=== PATIENT | male | born 1945 | race Two or more races ===

== ENCOUNTER 2021-02-15 06:36 | Day surgery (SDC) | payer OTHER ==
[~2021-02-15 06:36] MED LIST: COZAAR100 MG PO; GLIPIZIDE XL10 MG PO; JANUVIA50 MG PO; LASIX20 MG PO; NORVASC10 MG PO; TAMS0.4C PO
== END 2021-02-15 14:30 | disposition home or self-care (01) ==
LOC: CIR.AMB 06:36
PROVIDERS: ATTEND Urology
DX: C61 Malignant neoplasm of prostate (principal); C67.8 Malignant neoplasm of overlapping sites of bladder; C66.2 Malignant neoplasm of left ureter; N13.1 Hydronephrosis with ureteral stricture, not elsewhere classified; Z20.822 Contact with and (suspected) exposure to COVID-19

== ENCOUNTER 2021-04-19 05:35 | Day surgery (SDC) | payer OTHER | END 2021-04-19 16:35 | disposition home or self-care (01) | LOC: CIR.AMB 05:35 | PROVIDERS: ATTEND Urology | DX: C66.1 Malignant neoplasm of right ureter (principal); D49.511 Neoplasm of unspecified behavior of right kidney; Z20.822 Contact with and (suspected) exposure to COVID-19 ==

== ENCOUNTER 2021-06-07 05:42 | Day surgery (SDC) | payer OTHER ==
[~2021-06-07 05:42] MED LIST changes: +ATORVASTATIN CA10 MG PO; +PROSCAR5 MG PO
== END 2021-06-07 14:15 | disposition home or self-care (01) ==
LOC: CIR.AMB 05:42
PROVIDERS: ATTEND Urology
DX: C64.1 Malignant neoplasm of right kidney, except renal pelvis (principal); Z20.822 Contact with and (suspected) exposure to COVID-19

== ENCOUNTER 2021-07-15 06:00 | Day surgery (SDC) | payer OTHER | END 2021-07-15 16:15 | disposition home or self-care (01) | LOC: CIR.AMB 06:00 | PROVIDERS: ATTEND Urology | DX: C65.1 Malignant neoplasm of right renal pelvis (principal); Z20.822 Contact with and (suspected) exposure to COVID-19 ==

== ENCOUNTER 2021-10-18 09:06 | Day surgery (SDC) | payer OTHER | END 2021-10-18 18:35 | disposition home or self-care (01) | LOC: CIR.AMB 09:06 | PROVIDERS: ATTEND Urology | DX: C65.1 Malignant neoplasm of right renal pelvis (principal); Z20.822 Contact with and (suspected) exposure to COVID-19 ==

== ENCOUNTER 2022-01-10 08:00 | Day surgery (SDC) | payer OTHER ==
[~2022-01-10] VITALS: Ht 177.8 cm; Wt 95.3 kg
[~2022-01-10 08:00] MED LIST changes: +METOPROLOL SUCC50 MG; +NIFEDIPINE ER60 MG; +ST. JOSEPH ASPI81 M2; +VITACEL TABLET1 EACH
== END 2022-01-10 09:00 | disposition home or self-care (01) ==
LOC: CIR.AMB 08:00 → O/R 15:45
PROVIDERS: ATTEND Urology
DX: D09.19 Carcinoma in situ of other urinary organs (principal)

== ENCOUNTER 2022-02-28 08:25 | Day surgery (SDC) | payer OTHER ==
[~2022-02-28 08:25] MED LIST changes: -NIFEDIPINE ER60 MG; +NIFEDIPINE ER60 MG PO
== END 2022-02-28 18:30 | disposition home or self-care (01) ==
LOC: CIR.AMB 08:25
PROVIDERS: ATTEND Urology
DX: C65.1 Malignant neoplasm of right renal pelvis (principal); N13.2 Hydronephrosis with renal and ureteral calculous obstruction; I10 Essential (primary) hypertension; N40.0 Benign prostatic hyperplasia without lower urinary tract symptoms; E11.9 Type 2 diabetes mellitus without complications; Z79.84 Long term (current) use of oral hypoglycemic drugs

== ENCOUNTER 2022-05-30 06:00 | Day surgery (SDC) | payer OTHER ==
[~2022-05-30] VITALS: Ht 177.8 cm; Wt 95.3 kg
== END 2022-05-30 16:53 | disposition home or self-care (01) ==
LOC: CIR.AMB 06:00
PROVIDERS: ATTEND Urology
DX: N13.1 Hydronephrosis with ureteral stricture, not elsewhere classified (principal); C65.1 Malignant neoplasm of right renal pelvis; Z20.822 Contact with and (suspected) exposure to COVID-19; Z88.0 Allergy status to penicillin; I10 Essential (primary) hypertension; E78.5 Hyperlipidemia, unspecified; E11.9 Type 2 diabetes mellitus without complications; N40.0 Benign prostatic hyperplasia without lower urinary tract symptoms; N28.9 Disorder of kidney and ureter, unspecified; E66.9 Obesity, unspecified; Z79.84 Long term (current) use of oral hypoglycemic drugs; N00.8 Acute nephritic syndrome with other morphologic changes

== ENCOUNTER 2023-01-16 07:52 | Day surgery (SDC) | payer OTHER ==
[~2023-01-16] VITALS: Ht 177.8 cm; Wt 96.2 kg
== END 2023-01-16 18:10 | disposition home or self-care (01) ==
LOC: CIR.AMB 07:52
PROVIDERS: ATTEND Urology
DX: C67.9 Malignant neoplasm of bladder, unspecified (principal); D49.89 Neoplasm of unspecified behavior of other specified sites; N35.819 Other urethral stricture, male, unspecified site; N30.80 Other cystitis without hematuria; Z88.0 Allergy status to penicillin; Z20.822 Contact with and (suspected) exposure to COVID-19; I10 Essential (primary) hypertension; E11.9 Type 2 diabetes mellitus without complications; Z79.84 Long term (current) use of oral hypoglycemic drugs

== ENCOUNTER 2023-07-24 06:00 | Day surgery (SDC) | payer OTHER | END 2023-07-24 14:00 | disposition home or self-care (01) | LOC: CIR.AMB 06:00 | PROVIDERS: ATTEND Urology | DX: C67.9 Malignant neoplasm of bladder, unspecified (principal); C65.1 Malignant neoplasm of right renal pelvis; N13.1 Hydronephrosis with ureteral stricture, not elsewhere classified; Z20.822 Contact with and (suspected) exposure to COVID-19; Z88.0 Allergy status to penicillin; Z88.8 Allergy status to other drugs, medicaments and biological substances ==

== ENCOUNTER 2024-02-12 05:46 | Day surgery (SDC) | payer OTHER ==
[2024-02-08 08:49] LABS: HEMATOCRIT 33.7 % (39.0-48.0); HEMOGLOBIN 11.4 g/dL (13-16.00); MEAN CELL VOLUME 87.6 fL (80.0-100.00); MEAN CORPUSCULAR HEMOGLOBIN 29.6 pg (27.00-32.0); MEAN CORPUSCULAR HGB CONC 33.7 g/dl (32.0-36.0); PLATELET COUNT 267 K/uL (150-450); RED BLOOD COUNT 3.84 M/uL (4.00-6.00); RED CELL DISTRIBUTION WIDTH 14.5 % (11.5-14.5)
[2024-02-08 08:54] LABS: PH,URINE 6.5 (5.0-8.0); URINE APPEARANCE Cloudy; URINE BILIRRUBIN Negative (NEGATIVE); URINE BLOOD Large; URINE COLOR Yellow; URINE GLUCOSE Negative (NEGATIVE); URINE LEUKOCYTE Large; URINE NITRATE Negative; URINE UROBILINOGEN 0.2 E.U./dl
[2024-02-08 08:57] LABS: URINE BACTERIA 5033.5 uL (0.0-1933); URINE EPITHELIAL CELLS 4.4 uL (0.0-38.8); URINE RBC 462.6 uL (0.0-20.8); URINE WBC 2552.6 uL (0.0-23.2)
[2024-02-08 09:09] LABS: INR 1.05; PARTIAL THROMBOPLASTIN TIME 34.1 SECONDS (22.0-34.0)
[2024-02-08 09:23] LABS: URINE PROTEIN 300 (NEGATIVE)
[2024-02-08 09:26] LABS: CALCIUM 8.5 mg/dL (8.5-10.1); CREATININE SERUM 2.3 mg/dL (0.70-1.30); GFR 27.78; POTASSIUM 4.37 mEq/L (3.5-5.1)
[2024-02-12] MEDS ORDERED: GENTAMICIN SULFATE 40 MG/ML VIAL ONE (06:57)
[2024-02-12] MEDS ORDERED: GENTAMICIN SULFATE 40 MG/ML VIAL IV ONE (07:45)
[2024-02-12] MEDS ORDERED: FLUCONAZOLE IN NACL,ISO-OSM 200 MG/100 ML PIGGYBAG IV ONE (08:45)
== END 2024-02-12 12:45 | disposition home or self-care (01) ==
LOC: CIR.AMB 05:46
PROVIDERS: ATTEND Urology
DX: C65.1 Malignant neoplasm of right renal pelvis (principal); N13.1 Hydronephrosis with ureteral stricture, not elsewhere classified; Z88.0 Allergy status to penicillin; Z88.6 Allergy status to analgesic agent